=== PATIENT | male | born 1990 | race Asian ===

== ENCOUNTER 2019-06-17 09:00 | Outpatient (CLI) | payer OTHER ==
--- NOTE | 2019-06-17 14:41 | MRI Report ---
Reason: PAIN IN RIGHT FINGERS Procedure Date: 06/17/2019 Accession Number: [id number] / [id number] Procedure: MRI - Hand RT W/O CPT Code: FULL RESULT: EXAM: RIGHT HAND SECOND DIGIT MR WITHOUT CONTRAST EXAM DATE: 06/17/2019 10:01 AM. CLINICAL HISTORY: Right second digit pain. COMPARISON: None. TECHNIQUE: Multiplanar, multisequence T1-weighted and fluid-sensitive sequences of the finger without contrast. Other: None. FINDINGS: Bones: No fractures or subluxations. No marrow edema. No bone lesions. Cartilage: The articular cartilage is unremarkable. Ligaments: The radial and ulnar collateral ligaments are intact. Tendons: The flexor and extensor tendons are unremarkable. The visualized pulleys are intact. Musculature: No edema or fatty atrophy. Other: No joint effusions or capsular rupture. The subcutaneous tissues are unremarkable. IMPRESSION: No MRI abnormalities in the finger. [facility]
== END 2019-06-17 09:01 | disposition home or self-care (01) ==
LOC: DI 09:00
PROVIDERS: ATTEND Orthopaedic Surgery
DX: M79.644 Pain in right finger(s) (principal)